=== PATIENT | male | born 1965 | race Caucasian/White ===

== ENCOUNTER 2018-08-22 15:41 | Inpatient (IN) | payer OTHER ==
[~2018-08-22] VITALS: Ht 180.3 cm; Wt 98.4 kg
[2018-08-22 15:42] VITALS: BP 155/89
--- NOTE | 2018-08-22 15:42 | NUR ---
ED Nurse Note: pt brought in by lafd from home c/c s/p syncopal episode, pt states he was feeling like low blood sugar and ate some gummy bears and when he woke up he was surrounded by other people. per 's statement, pt fell and hit his head and called 911, pt loc for about 10 min but was breathing. pt AA&ox4, gcs=15, mild anxious, skin warm and dry, resp even and unlabored, no s/s injury or contusion or open wound noted on head, PERRLA, -n/v/d, ambulates w/steady gait, will cont monitor. PT sinus tach on director of cardiac cath lab, [id number], ERMD at the bedside.
[2018-08-22] MEDS ORDERED: LISINOPRIL20 MG ORAL (15:44)
--- NOTE | 2018-08-22 15:45 | NUR ---
ED Nurse Note: pt states he's nauseated, ERMD notified.
[2018-08-22] MEDS ORDERED: LORAZEPAM0.5 MG ORAL (15:46)
[2018-08-22] MEDS ORDERED: IBUPROFEN600 MG ORAL (15:46)
[2018-08-22] MEDS ORDERED: LANTUS SOL100 UNIT/1 SUBQ (15:46)
--- NOTE | 2018-08-22 15:50 | NUR ---
ED Nurse Note: per ERMD order, gave pt orange juice 4 floz.
--- NOTE | 2018-08-22 15:59 | Emergency Room Report ---
History of Present Illness General Chief Complaint: Syncope Source: Patient, Family Member Present Illness HPI This is a 51-year-old male with a history of insulin-dependent diabetes, who was on Lantus and Humalog, who was brought here by paramedics for a suitable episode. According to patient, he took 15 units of Humalog several hours ago thought that he was having low blood sugar intertriginous for some gummy bears. Unknown if he had some. And on the actual sugar on arrival by paramedics. He denies any trauma. She states she has a complete loss of conscious. She does not recall after that. He does recall having to the hospital. Currently, he does not have any complaints. He states that he had cereal this morning but did not have any lunch. He has not had any change in dosages. Allergies: Coded Allergies: No Known Allergies (Unverified , 08/22/18) Patient History Past Medical History: other - Patient has a history of necrotizing pancreatitis. Past Surgical History: ronnie Pertinent Family History: none Nursing Documentation-PMH Past Medical History: No History, Except For Hx Hypertension: Yes Hx Diabetes: Yes - DM2 Review of Systems All Other Systems: negative except mentioned in HPI Physical Exam Vital Signs Date Time Temp Pulse Resp B/P (MAP) Pulse Ox O2 Delivery O2 Flow Rate FiO2 08/22/18 15:35 97.5 134 18 161/91 99 Room Air General Appearance: no apparent distress, alert, GCS 15, non-toxic Head: normocephalic, atraumatic ENT: hearing grossly normal, normal pharynx, no angioedema, normal voice Neck: full range of motion, supple/symm/no masses Respiratory: chest non-tender, lungs clear, normal breath sounds, speaking full sentences Cardiovascular #1: tachycardia Gastrointestinal: normal bowel sounds, non tender, soft, non-distended, no guarding, no rebound Musculoskeletal: back normal, gait/station normal, normal range of motion, non- tender, calf tenderness Neurologic: alert, oriented x3, responsive, motor strength/tone normal, sensory intact, speech normal Medical Decision Making Diagnostic Impression: Primary Impression: Syncope ER Course Patient was immediately seen and evaluated. Very concerned about hypoglycemic episode. I also did consider acute sepsis as well. He is afebrile. It is noted that the patient did not have a significant decline in blood pressure which leads me to believe that there may be some underlying cause of syncope. Cardiac etiology was considered as well. I also considered acute seizure disorder. The patient will be admitted to telemetry observation unit. No head injury was noted. Therefore, a CT scan is not indicated at this time. He has a normal neurological examination. Laboratory Tests Test 08/22/18 15:53 White Blood Count 8.7 K/UL (4.8-10.8) Red Blood Count 5.52 M/UL (4.70-6.10) Hemoglobin 18.3 G/DL (14.2-18.0) *H Hematocrit 49.7 % (42.0-52.0) Mean Corpuscular Volume 90 FL (80-99) Mean Corpuscular Hemoglobin 33.2 PG (27.0-31.0) H Mean Corpuscular Hemoglobin Concent 36.8 G/DL (32.0-36.0) H Red Cell Distribution Width 10.4 % (11.6-14.8) L Platelet Count 245 K/UL (150-450) Mean Platelet Volume 7.8 FL (6.5-10.1) Neutrophils (%) (Auto) 55.5 % (45.0-75.0) Lymphocytes (%) (Auto) 34.1 % (20.0-45.0) Monocytes (%) (Auto) 6.6 % (1.0-10.0) Eosinophils (%) (Auto) 2.2 % (0.0-3.0) Basophils (%) (Auto) 1.6 % (0.0-2.0) Sodium Level 139 MMOL/L (136-145) Potassium Level 3.7 MMOL/L (3.5-5.1) Chloride Level 98 MMOL/L (98-107) Carbon Dioxide Level 20 MMOL/L (21-32) L Anion Gap 21 mmol/L (5-15) H Blood Urea Nitrogen 14 mg/dL (7-18) Creatinine 1.6 MG/DL (0.55-1.30) H Estimate Glomerular Filtration Rate 45.4 mL/min (>60) Glucose Level 112 MG/DL (74-106) H Calcium Level 10.1 MG/DL (8.5-10.1) Total Bilirubin 0.5 MG/DL (0.2-1.0) Aspartate Amino Transferase (AST) 34 U/L (15-37) Alanine Aminotransferase (ALT) 56 U/L (12-78) Alkaline Phosphatase 112 U/L (46-116) Troponin I 0.000 ng/mL (0.000-0.056) Total Protein 9.0 G/DL (6.4-8.2) H Albumin 5.0 G/DL (3.4-5.0) Globulin 4.0 g/dL Albumin/Globulin Ratio 1.2 (1.0-2.7) EKG Diagnostic Results EKG Time: 15:59 Rate: tachycardiac Rhythm: NSR ST Segments: no acute changes ASA given to the pt in ED: No Chest X-Ray Diagnostic Results Chest X-Ray Diagnostic Results : Chest X-Ray Ordered: Yes # of Views/Limited/Complete: 1 View Indication: Other - syncope EP Interpretation: No - NAD per Rad Last Vital Signs Date Time Temp Pulse Resp B/P (MAP) Pulse Ox O2 Delivery O2 Flow Rate FiO2 08/22/18 15:35 97.5 134 18 161/91 99 Room Air Status: improved Disposition: PLACE IN OBSERVATION Condition: Serious Signed Out To: JACQUELYN Bird Aug 22, 2018 15:59
[2018-08-22 16:11] LABS: BASOPHILS % (AUTO) 1.6 % (0.0-2.0); EOSINOPHILS % (AUTO) 2.2 % (0.0-3.0); HEMATOCRIT 49.7 % (42.0-52.0); LYMPHOCYTES % (AUTO) 34.1 % (20.0-45.0); MEAN CORPUSCULAR VOLUME 90 FL (80-99); MONOCYTES % (AUTO) 6.6 % (1.0-10.0); NEUTROPHILS % (AUTO) 55.5 % (45.0-75.0); PLATELET COUNT 245 K/UL (150-450); RED BLOOD COUNT 5.52 M/UL (4.70-6.10); RED CELL DISTRIBUTION WIDTH 10.4 % (11.6-14.8); WHITE BLOOD COUNT 8.7 K/UL (4.8-10.8)
[2018-08-22 16:12] LABS: HEMOGLOBIN 18.3 G/DL (14.2-18.0)
[2018-08-22 16:16] LABS: ANION GAP 21 mmol/L (5-15); BLOOD UREA NITROGEN 14 mg/dL (7-18); CALCIUM 10.1 MG/DL (8.5-10.1); CARBON DIOXIDE 20 MMOL/L (21-32); CHLORIDE 98 MMOL/L (98-107); CREATININE 1.6 MG/DL (0.55-1.30); POTASSIUM 3.7 MMOL/L (3.5-5.1); SODIUM 139 MMOL/L (136-145)
[2018-08-22] MEDS: Sodium Chloride 500ML 550 ML IV SCH ×2 (16:17→20:39)
[2018-08-22 16:21] LABS: ALANINE AMINOTRANSFERASE 56 U/L (12-78); ALBUMIN/GLOBULIN RATIO 1.2 (1.0-2.7); ALKALINE PHOSPHATASE 112 U/L (46-116); ASPARTATE AMINO TRANSFERASE 34 U/L (15-37); BILIRUBIN,TOTAL 0.5 MG/DL (0.2-1.0)
--- NOTE | 2018-08-22 16:30 | NUR ---
ED Nurse Note: pt reports nausea is better, spouse member at the bedside, will cont monitor.
[2018-08-22 16:42] VITALS: BP 152/89
--- NOTE | 2018-08-22 16:58 | Diagnostic Imaging Report ---
Indication: Chest pain, syncope Technique: XRAY Chest 1v Comparison: None Findings: Heart size and mediastinal contours are within normal limits given technique. There is no focal consolidation, pneumothorax or pleural effusion. Osseous structures demonstrate no acute abnormality. Impression: No radiographic evidence of acute cardiopulmonary disease.
[2018-08-22 17:30] VITALS: BP 153/95
--- NOTE | 2018-08-22 17:53 | NUR ---
ED Nurse Note: pt reports he doesn't have nausea but "doesn't feel right"and feels light headed [id number], ERMD at the bedside and notified.
[2018-08-22 18:30] VITALS: BP 148/96
--- NOTE | 2018-08-22 18:37 | NUR ---
ED Nurse Note: urine collected and sent down to the lab.
[2018-08-22 18:52] LABS: APPEARANCE,URINE CLEAR; BILIRUBIN, URINE NEGATIVE (NEGATIVE); GLUCOSE, URINE (UA) 3+ (NEGATIVE); KETONES,URINE 1+ (NEGATIVE); LEUKOCYTE ESTERASE ,URINE NEGATIVE (NEGATIVE); NITRITE,URINE NEGATIVE (NEGATIVE); PH,URINE 5 (4.5-8.0); PROTEIN,URINE 3+ (NEGATIVE); UROBILINOGEN,URINE NORMAL MG/DL (0.0-1.0)
--- NOTE | 2018-08-22 18:54 | NUR ---
ED Nurse Note: Dr. Galarza at the bedside.
[2018-08-22 18:56] LABS: COLOR,URINE YELLOW
[2018-08-22] MEDS ORDERED: VENTOLIN HFA18 GM INH (19:06)
[2018-08-22] MEDS ORDERED: BENADRYL25 MG ORAL (19:06)
[2018-08-22] MEDS ORDERED: HUMALOG100 UNIT/4 SUBQ (19:06)
[2018-08-22] MEDS ORDERED: LORAZEPAM1 MG ORAL (19:06)
[2018-08-22] MEDS ORDERED: VALACYCLOVIR500 MG ORAL (19:06)
[2018-08-22] MEDS ORDERED: 12 HOUR NASAL S30 ML NASAL (19:06)
[2018-08-22] MEDS ORDERED: IBUPROFEN800 MG ORAL (19:06)
[2018-08-22] MEDS ORDERED: FLUTICASONE PRO16 G1 NASAL (19:06)
[2018-08-22] MEDS ORDERED: TYLENOL EXTRA500 MG ORAL (19:06)
--- NOTE | 2018-08-22 19:20 | NUR ---
ED Nurse Note: attempted giving report, Receiving nurse zuly currently unavailable, will try again.
[2018-08-22 19:30] VITALS: BP 150/92
--- NOTE | 2018-08-22 20:16 | NUR ---
ED Nurse Note: report given to Chiquis SANTIZO from Tele floor, pt going to rm 212-2, all belongings sent with pt, pt transferred to floor to continue care. pt vss. aA&ox4, gcs=15.
--- NOTE | 2018-08-22 21:03 | History & Physical ---
History and Physical History & Physicial 51-year-old male with history of diabetes who presents by special officer for noted hypoglycemia. The patient was running low blood sugars. The patient apparently had loss of consciousness. Currently denies any complaints. No fevers no chills no history of cardiac disease Past medical history notable for diabetes Medication reviewed Harvey allergies reviewed Social history non-smoker nondrinker Past surgical history cholecystectomy Physical examination Well-developed well-nourished male no acute distress vital signs in the emergency room with elevated blood pressure Currently blood pressure 152/89 heart rate 105 respiratory 18 oxygen saturation 96% temperature 97.5 HEENT overall negative neck supple no adenopathy lungs are fairly clear and symmetric Cardiac exam normal S1-S2 regular rate rhythm Abdomen is soft nontender extremities no cyanosis or clubbing or edema Labs Test 08/22/18 15:53 08/22/18 18:35 White Blood Count 8.7 K/UL (4.8-10.8) Red Blood Count 5.52 M/UL (4.70-6.10) Hemoglobin 18.3 G/DL (14.2-18.0) Hematocrit 49.7 % (42.0-52.0) Mean Corpuscular Volume 90 FL (80-99) Mean Corpuscular Hemoglobin 33.2 PG (27.0-31.0) Mean Corpuscular Hemoglobin Concent 36.8 G/DL (32.0-36.0) Red Cell Distribution Width 10.4 % (11.6-14.8) Platelet Count 245 K/UL (150-450) Mean Platelet Volume 7.8 FL (6.5-10.1) Neutrophils (%) (Auto) 55.5 % (45.0-75.0) Lymphocytes (%) (Auto) 34.1 % (20.0-45.0) Monocytes (%) (Auto) 6.6 % (1.0-10.0) Eosinophils (%) (Auto) 2.2 % (0.0-3.0) Basophils (%) (Auto) 1.6 % (0.0-2.0) Sodium Level 139 MMOL/L (136-145) Potassium Level 3.7 MMOL/L (3.5-5.1) Chloride Level 98 MMOL/L (98-107) Carbon Dioxide Level 20 MMOL/L (21-32) Anion Gap 21 mmol/L (5-15) Blood Urea Nitrogen 14 mg/dL (7-18) Creatinine 1.6 MG/DL (0.55-1.30) Estimat Glomerular Filtration Rate 45.4 mL/min (>60) Glucose Level 112 MG/DL (74-106) Calcium Level 10.1 MG/DL (8.5-10.1) Total Bilirubin 0.5 MG/DL (0.2-1.0) Aspartate Amino Transf (AST/SGOT) 34 U/L (15-37) Alanine Aminotransferase (ALT/SGPT) 56 U/L (12-78) Alkaline Phosphatase 112 U/L (46-116) Troponin I 0.000 ng/mL (0.000-0.056) Total Protein 9.0 G/DL (6.4-8.2) Albumin 5.0 G/DL (3.4-5.0) Globulin 4.0 g/dL Albumin/Globulin Ratio 1.2 (1.0-2.7) Urine Color Yellow Urine Appearance Clear Urine pH 5 (4.5-8.0) Urine Specific Gregory 1.025 (1.005-1.035) Urine Protein 3+ (NEGATIVE) Urine Glucose (UA) 3+ (NEGATIVE) Urine Ketones 1+ (NEGATIVE) Urine Blood 3+ (NEGATIVE) Urine Nitrite Negative (NEGATIVE) Urine Bilirubin Negative (NEGATIVE) Urine Urobilinogen Normal MG/DL (0.0-1.0) Urine Leukocyte Esterase Negative (NEGATIVE) Urine RBC 5-10 /HPF (0 - 0) Urine WBC 0-2 /HPF (0 - 0) Urine Squamous Epithelial Cells None /LPF (NONE/OCC) Urine Bacteria Few /HPF (NONE) Urine Fine Granular Casts 0-2 /LPF (NONE) Impression Hypoglycemia Loss of consciousness likely due to the above Possible syncope Minimal azotemia mild hemoconcentration Diabetes Plan IV hydration Hold blood sugars medicine Monitor for hypoglycemia Monitor labs Cardiology clearance and serial troponins Abdifatah Hannah MD Aug 22, 2018 21:03
[2018-08-22 22:15] VITALS: BP 168/116
[2018-08-22] MEDS ORDERED: Milk of Magnesia 30ml Ud ORAL PRN (22:30)
[2018-08-22] MEDS ORDERED: Albuterol 90mcg Inhaler 8gm INH SCH (22:45)
[2018-08-22] MEDS ORDERED: valACYclovir HCL 500mg tab ORAL PRN (22:45)
[2018-08-22] MEDS: LORazepam 1mg tab ORAL PRN (23:07)
[2018-08-23] VITALS: BP 183/116
[2018-08-23] MEDS: Sodium Chloride 500ML 550 ML IV SCH ×2 (01:03→05:27)
[2018-08-23 04:00] VITALS: BP 136/89
--- NOTE | 2018-08-23 05:45 | Consultation ---
DATE OF CONSULTATION: 08/22/2018 CARDIOLOGY CONSULTATION REQUESTING PHYSICIAN: Dr. Abdifatah Hannah. REASON FOR CONSULTATION: Syncope. HISTORY OF PRESENT ILLNESS: This is a 52-year-old male with insulin-requiring diabetes mellitus, takes short and long-acting insulin. He took his usual dose of Humalog, but noted subsequently that he had not eaten much and had a low sugar. He went to have some ____ as a result, but before he could actually consume that he felt like he was blacking out and apparently lost consciousness completely with no recollection until arriving to the hospital by paramedics. The patient misses lunch afternoon. PAST MEDICAL HISTORY: Insulin-requiring diabetes mellitus, status post cholecystectomy, history of necrotizing pancreatitis, and hypertension. ALLERGIES: None. MEDICATIONS: Reviewed. SOCIAL HISTORY: Negative for smoking, alcohol, or substance abuse. FAMILY HISTORY: Noncontributory. MEDICATIONS: Reviewed and reconciled. REVIEW OF SYSTEMS: No history of myocardial infarction. No history of irregular heartbeats. No history of prior stroke. No history of thyroid disorder. No history of asthma. PHYSICAL EXAMINATION: GENERAL: Well developed and well nourished, presently alert and in no distress. VITAL SIGNS: Afebrile, blood pressure 161/91, pulse 134, and respiratory rate 18. HEENT: Normocephalic and atraumatic. Conjunctivae pink. Oropharynx clear. NECK: Supple. Jugular venous pressure normal. No bruits. Carotid upstrokes without delay. LUNGS: Clear. CARDIAC: Regular rhythm. Rapid rate. Normal S1 and S2 with no murmur, rub, or gallop. ABDOMEN: Slightly obese, soft, and nontender. EXTREMITIES: Good pulses. No edema. NEUROLOGIC: Symmetric strength. Cognitive intact. No focal deficits. LABORATORY DATA: White count 8.7 and hemoglobin is 18. Chemistry panel within normal limits other than BUN 14 and creatinine 1.6. Troponin 0. EKG, sinus tachycardia with no acute ST-T abnormalities. IMPRESSION: 1. Syncope due to hypoglycemia. 2. Insulin-requiring diabetes mellitus. 3. Mild hypovolemia, dehydration, and chronic kidney disease with diabetic nephropathy. PLAN: 1. Hydration. 2. Glucose monitoring. 3. Intravenous fluids with dextrose. 4. Decreased long-acting insulin dosing. 5. Continue sliding scale coverage. 6. Hold parameters for antihypertensives. 7. Serial troponin level. Cliff Galarza M.D. DR: MAURILIO JOB#: [id number] CC:
[2018-08-23 07:30] LABS: BASOPHILS % (AUTO) 0.6 % (0.0-2.0); EOSINOPHILS % (AUTO) 0.9 % (0.0-3.0); HEMATOCRIT 44.1 % (42.0-52.0); LYMPHOCYTES % (AUTO) 21.5 % (20.0-45.0); MEAN CORPUSCULAR VOLUME 92 FL (80-99); MONOCYTES % (AUTO) 7.6 % (1.0-10.0); NEUTROPHILS % (AUTO) 69.5 % (45.0-75.0); PLATELET COUNT 210 K/UL (150-450); RED BLOOD COUNT 4.78 M/UL (4.70-6.10); RED CELL DISTRIBUTION WIDTH 10.8 % (11.6-14.8); WHITE BLOOD COUNT 10.3 K/UL (4.8-10.8)
[2018-08-23] MEDS: NovoLOG Insulin Flexpen SUBQ SCH ×4 (07:30→20:28)
[2018-08-23 07:43] LABS: ANION GAP 13 mmol/L (5-15); BLOOD UREA NITROGEN 15 mg/dL (7-18); CALCIUM 8.8 MG/DL (8.5-10.1); CARBON DIOXIDE 23 MMOL/L (21-32); CHLORIDE 103 MMOL/L (98-107); CREATININE 1.2 MG/DL (0.55-1.30); POTASSIUM 4.3 MMOL/L (3.5-5.1); SODIUM 139 MMOL/L (136-145)
--- NOTE | 2018-08-23 07:47 | General Progress Note ---
Assessment/Plan Assessment/Plan Impression Hypoglycemia Loss of consciousness likely due to the above Possible syncope Minimal azotemia mild hemoconcentration Diabetes elevated troponin Plan maintain IV hydration resume blood sugars medicine Monitor sugars Monitor labs Cardiology clearance ? stress test Subjective Allergies: Coded Allergies: HYDROMORPHONE (Verified Allergy, Intermediate, sweating, hallucination, ) Subjective care noted troponin elevated Objective Last 24 Hour Vital Signs Date Time Temp Pulse Resp B/P (MAP) Pulse Ox O2 Delivery O2 Flow Rate FiO2 08/23/18 04:00 83 08/23/18 04:00 97.9 88 19 136/89 (105) 97 08/23/18 00:00 99 08/23/18 00:00 98.3 96 17 183/116 (138) 93 08/22/18 23:32 Room Air 08/22/18 23:08 168/116 08/22/18 22:15 101 168/116 (133) 08/22/18 20:55 98.0 102 16 150/92 100 Room Air 08/22/18 19:30 97.9 102 18 150/92 96 Room Air 08/22/18 18:30 98.0 105 18 148/96 96 Room Air 08/22/18 17:30 97.5 105 18 153/95 96 Room Air 08/22/18 16:42 97.5 105 18 152/89 96 Room Air 08/22/18 15:42 97.5 118 18 155/89 99 Room Air 08/22/18 15:35 97.5 134 18 161/91 99 Room Air Intake and Output 08/22/18 08/23/18 19:00 07:00 Intake Total 400 ml Output Total 800 ml Balance -400 ml Intake Oral 400 ml Output Urine Total 800 ml # Voids 2 Laboratory Tests 08/22/18 15:53: White Blood Count 8.7, Red Blood Count 5.52, Hemoglobin 18.3*H, Hematocrit 49.7 , Mean Corpuscular Volume 90, Mean Corpuscular Hemoglobin 33.2H, Mean Corpuscular Hemoglobin Concent 36.8H, Red Cell Distribution Width 10.4L, Platelet Count 245, Mean Platelet Volume 7.8, Neutrophils (%) (Auto) 55.5, Lymphocytes (%) (Auto) 34.1, Monocytes (%) (Auto) 6.6, Eosinophils (%) (Auto) 2.2, Basophils (%) (Auto) 1.6, Sodium Level 139, Potassium Level 3.7, Chloride Level 98, Carbon Dioxide Level 20L, Anion Gap 21H, Blood Urea Nitrogen 14, Creatinine 1.6H, Estimat Glomerular Filtration Rate 45.4, Glucose Level 112H, Calcium Level 10.1, Total Bilirubin 0.5, Aspartate Amino Transf (AST/SGOT) 34, Alanine Aminotransferase (ALT/SGPT) 56, Alkaline Phosphatase 112, Troponin I 0.000, Total Protein 9.0H, Albumin 5.0, Globulin 4.0, Albumin/Globulin Ratio 1.2 08/22/18 18:35: Urine Color Yellow, Urine Appearance Clear, Urine pH 5, Urine Specific Hodgen 1.025, Urine Protein 3+H, Urine Glucose (UA) 3+H, Urine Ketones 1+H, Urine Blood 3+H, Urine Nitrite Negative, Urine Bilirubin Negative, Urine Urobilinogen Normal, Urine Leukocyte Esterase Negative, Urine RBC 5-10H, Urine WBC 0-2, Urine Squamous Epithelial Cells None, Urine Bacteria Few, Urine Fine Granular Casts 0-2H 08/23/18 05:55: White Blood Count 10.3, Red Blood Count 4.78, Hemoglobin 16.0, Hematocrit 44.1, Mean Corpuscular Volume 92, Mean Corpuscular Hemoglobin 33.4H, Mean Corpuscular Hemoglobin Concent 36.2H, Red Cell Distribution Width 10.8L, Platelet Count 210 , Mean Platelet Volume 7.5, Neutrophils (%) (Auto) 69.5, Lymphocytes (%) (Auto) 21.5, Monocytes (%) (Auto) 7.6, Eosinophils (%) (Auto) 0.9, Basophils (%) (Auto ) 0.6, Sodium Level [Pending], Potassium Level [Pending], Chloride Level [ Pending], Carbon Dioxide Level [Pending], Blood Urea Nitrogen [Pending], Creatinine [Pending], Estimat Glomerular Filtration Rate [Pending], Glucose Level [Pending], Calcium Level [Pending], Troponin I 0.063H Height (Feet): 5 Height (Inches): 11.00 Weight (Pounds): 220 Objective WDWN NAD clear breath sounds bilaterally without rhonchi or wheeze [id number] without MRG NABS nontender no HSM no CCE nonfocal Abdifatah Hannah MD Aug 23, 2018 07:47
--- NOTE | 2018-08-23 07:50 | NUR ---
HAND-OFF: Report given to SUKHDEV Ramesh. Pt stable.
--- NOTE | 2018-08-23 07:55 | NUR ---
NURSE NOTES: Received patient from Chiquis. Patient is sleeping in bed. Patient has unlabored breathing. Patient is SR. Bed is in lowest position, call light within reach, and side rails x2 up. Will follow up plan of care.
[2018-08-23 08:52] VITALS: BP 145/92
--- NOTE | 2018-08-23 08:54 | NUR ---
NURSE NOTES: Made call to Dr. Galarza's office about troponin 0.063 at 8:51am. Awaiting orders.
[2018-08-23] MEDS ORDERED: Flonase Nasal Inhaler 16gm NASAL PRN (09:00)
[2018-08-23] MEDS ORDERED: Flonase Nasal Inhaler 16gm NASAL SCH (09:00)
[2018-08-23] MEDS: Oxymetazoline 0.05% Na Spray 30ml NASAL SCH ×2 (09:17→17:54)
[2018-08-23] MEDS: Lisinopril 20mg tab ORAL SCH (09:18)
[2018-08-23] MEDS: Flonase Nasal Inhaler 16gm NASAL PRN ×2 (09:18→21:37)
--- NOTE | 2018-08-23 09:49 | Diagnostic Imaging Report ---
Indications: Syncopal episode and head trauma Technique: Spiral acquisitions obtained through the brain. Angled axial and coronal 5 x 5 mm slices were reconstructed. Total dose length product 1499.24 mGycm. CTDI vol(s) 70.38 mGy. Dose reduction achieved using automated exposure control Comparison: None. Findings: No acute intracranial hemorrhage or edema. No mass effect nor midline shift. Normal guevara-white differentiation. Normal-sized ventricles and extra axial CSF spaces. Visualized orbits and sinuses are unremarkable. The calvarium is intact. The mastoids are clear. Impression: Negative The CT scanner at [facility] is accredited by the [employer] and the scans are performed using protocols designed to limit radiation exposure to as low as reasonably achievable to attain images of sufficient resolution adequate for diagnostic evaluation.
--- NOTE | 2018-08-23 11:00 | NUR ---
NURSE NOTES: Spoke with Dr. Galarza about troponin 0.063. States to reorder another troponin at noon on 08/23/18 and update with results. Order entered.
[2018-08-23 11:55] VITALS: BP 140/90
--- NOTE | 2018-08-23 12:31 | Cardiology Report ---
APPROVED REPORT EKG Measurement Heart [id number] 154P53 [id number] Normal sinus rhythm Normal ECG
--- NOTE | 2018-08-23 12:41 | Cardiology Report ---
APPROVED REPORT EKG Measurement Heart [id number] RI 150P45 [id number] Sinus tachycardia Otherwise normal ECG
--- NOTE | 2018-08-23 14:00 | NUR ---
NURSE NOTES: 1400: Spoke to Dr. Galarza about second troponin 0.029 drawn at Noon. Received order about orthostatic vital signs. Was entered into computer.
[2018-08-23 16:00] VITALS: BP 132/87
--- NOTE | 2018-08-23 16:11 | NUR ---
*-* NO INS INFO IN THE BAR UNABLE TO SEND REVIEWS OR CLINICALS *-*
[2018-08-23] MEDS ORDERED: Albuterol 90mcg Inhaler 8gm INH PRN (17:15)
[2018-08-23] MEDS ORDERED: Lexiscan 0.4mg/5ml syringe IV PRN (19:00)
--- NOTE | 2018-08-23 19:30 | NUR ---
NURSE NOTES: Report received from Gadiel SANTIZO. Pt is resting in bed in stable condition. Pt is awake, alert, and oriented x4. Pt is on room air and breathing is even and unlabored. No acute distress noted. IV site is asymptomatic, patent, and intact and running IV fluids at rx rate. Bed placed in lowest position with brake engaged and side rails up x2. Call light and side table placed within reach. Order noted from MD Galarza for lexiscan stress test in AM. Pt made aware and agreeable at this time. Will continue with plan of care.
--- NOTE | 2018-08-23 19:40 | NUR ---
HAND-OFF: Report given to SUKHDEV Childs.
[2018-08-23 20:00] VITALS: BP 152/100
--- NOTE | 2018-08-23 20:15 | Progress Note ---
DATE: 08/23/2018 CARDIOLOGY PROGRESS NOTE SUBJECTIVE: The patient has not had any change in mental status or loss of consciousness since admission. Glucose parameters have been slightly elevated, but he is on a dextrose drip. OBJECTIVE: VITAL SIGNS: Stable with no signs of orthostasis. Monitored rhythm sinus with rare atrial ectopy. LUNGS: Clear. CARDIAC: Normal S1, S2. No murmur. ABDOMEN: Soft. EXTREMITIES: No edema. LABORATORY DATA: Troponin #1 0, troponin #2 0.063, troponin #3 0.029. IMPRESSIONS: 1. Syncopal episode clearly due to hypoglycemia. 2. Slight troponin level elevation unlikely to reflect acute myocardial infarction, may be due to transient myocardial ischemia associated with syncopal event. 3. Acute kidney injury, resolved. RECOMMENDATIONS: 1. Adjust insulin dosing. 2. Taper off dextrose drip in view of multiple risk factors and assessment of coronary flow reserve will be obtained. Cliff Galarza M.D. DR: CLARICE JOB#: [id number] CC:
--- NOTE | 2018-08-23 20:20 | NUR ---
NURSE NOTES: Pt refusing stress test at this time. Will notify MD Galarza.
--- NOTE | 2018-08-23 20:37 | NUR ---
CASE MANAGEMENT: REVIEW 52/M BIBA FROM HOME CC: SYNCOPE . ABD PAIN SI: SYNCOPE . HYPOGLYCEMIA T 97.5 HR 134 RR 18 BP 161/91 SAT 96% ROOM AIR H/H 18.3/49.7 TROPONIN I 0.063 IS: ZOFRAN IV X1 NS IVF BOLUS X1 INTERQUAL CRITERIA MET: PATIENT ADMITTED TO TELEMETRY UNIT 08/22/2018 DCP: PATIENT IS FROM HOME
[2018-08-23] MEDS: LORazepam 1mg tab ORAL PRN (21:38)
--- NOTE | 2018-08-23 22:15 | NUR ---
NURSE NOTES: Message left for MD Galarza to notify that pt is refusing stress test at this time. Awaiting call back for further instructions. Pt in stable condition. Will continue to monitor.
--- NOTE | 2018-08-23 23:30 | NUR ---
NURSE NOTES: MD Galarza returned call and notified that pt is refusing stress test at this time. Per MD, he will be in tomorrow AM to speak with patient regarding procedure. No new orders at this time. Continue with plan of care.
[2018-08-24] VITALS: BP 130/70
[2018-08-24 04:00] VITALS: BP 153/94
[2018-08-24] MEDS: NovoLOG Insulin Flexpen SUBQ SCH ×2 (06:09→12:16)
--- NOTE | 2018-08-24 07:20 | NUR ---
NURSE NOTES: Received patient and report from SUKHDEV Childs in bed, denies any pain at this time. No s/s of distress noted, breathing is even and unlabored. Bed is in lowest position, brakes engaged for safety. Patient emphasized not wanting to do the stress test, explained that Dr. Galarza is aware and that he will be seeing patient today. Call light is within reach. Will continue with the plan of care.
[2018-08-24 08:00] VITALS: BP 155/99
[2018-08-24] MEDS ORDERED: valACYclovir HCL 500mg tab ORAL SCH (09:00)
--- NOTE | 2018-08-24 09:04 | General Progress Note ---
Assessment/Plan Assessment/Plan Impression Hypoglycemia Loss of consciousness likely due to the above Possible syncope Minimal azotemia mild hemoconcentration Diabetes elevated troponin head CT negative Plan maintain IV hydration resume blood sugars medicine Monitor sugars Monitor labs Cardiology clearance and stress test hope to dc later today Subjective Allergies: Coded Allergies: HYDROMORPHONE (Verified Allergy, Intermediate, sweating, hallucination, ) Subjective care noted troponin elevated but trending downwards Objective Last 24 Hour Vital Signs Date Time Temp Pulse Resp B/P (MAP) Pulse Ox O2 Delivery O2 Flow Rate FiO2 08/24/18 04:00 97.6 80 18 153/94 (113) 97 08/24/18 04:00 76 08/24/18 00:00 98.1 99 19 130/70 (90) 97 08/24/18 00:00 77 08/23/18 21:41 152/100 08/23/18 21:14 82 16 Room Air 21 08/23/18 21:00 Room Air 08/23/18 20:00 83 08/23/18 20:00 97.9 100 20 152/100 (117) 97 08/23/18 16:00 98.3 88 20 132/87 (102) 97 08/23/18 15:50 82 08/23/18 13:29 97 96 103 08/23/18 11:55 98.1 85 20 140/90 (107) 99 08/23/18 11:49 73 08/23/18 10:12 98.6 08/23/18 09:18 145/92 Intake and Output 08/23/18 08/24/18 19:00 07:00 Intake Total 820 ml 800 ml Output Total 700 ml Balance 820 ml 100 ml Intake Oral 820 ml 800 ml Output Urine Total 700 ml # Voids 2 Laboratory Tests 08/23/18 12:14: Troponin I 0.029 Height (Feet): 5 Height (Inches): 11.00 Weight (Pounds): 217 Objective WDWN NAD clear breath sounds bilaterally without rhonchi or wheeze [id number] without MRG NABS nontender no HSM no CCE nonfocal Abdifatah Hannah MD Aug 24, 2018 09:04
[2018-08-24] MEDS: Lisinopril 20mg tab ORAL SCH (09:13)
[2018-08-24] MEDS: Flonase Nasal Inhaler 16gm NASAL PRN (09:13)
[2018-08-24] MEDS: Oxymetazoline 0.05% Na Spray 30ml NASAL SCH (09:15)
--- NOTE | 2018-08-24 09:43 | General Progress Note ---
Assessment/Plan Assessment/Plan Impression Hypoglycemia Loss of consciousness likely due to the above Possible syncope Minimal azotemia mild hemoconcentration Diabetes elevated troponin head CT negative Plan refuses stress wants to sign out AMA Cardiology clearance and stress test d/w RN dc home Subjective Allergies: Coded Allergies: HYDROMORPHONE (Verified Allergy, Intermediate, sweating, hallucination, ) Subjective care noted troponin elevated but trending downwards refusing stress test Objective Last 24 Hour Vital Signs Date Time Temp Pulse Resp B/P (MAP) Pulse Ox O2 Delivery O2 Flow Rate FiO2 08/24/18 09:13 155/99 08/24/18 04:00 97.6 80 18 153/94 (113) 97 08/24/18 04:00 76 08/24/18 00:00 98.1 99 19 130/70 (90) 97 08/24/18 00:00 77 08/23/18 21:41 152/100 08/23/18 21:14 82 16 Room Air 21 08/23/18 21:00 Room Air 08/23/18 20:00 83 08/23/18 20:00 97.9 100 20 152/100 (117) 97 08/23/18 16:00 98.3 88 20 132/87 (102) 97 08/23/18 15:50 82 08/23/18 13:29 97 96 103 08/23/18 11:55 98.1 85 20 140/90 (107) 99 08/23/18 11:49 73 08/23/18 10:12 98.6 Intake and Output 08/23/18 08/24/18 19:00 07:00 Intake Total 820 ml 800 ml Output Total 700 ml Balance 820 ml 100 ml Intake Oral 820 ml 800 ml Output Urine Total 700 ml # Voids 2 Laboratory Tests 08/23/18 12:14: Troponin I 0.029 Height (Feet): 5 Height (Inches): 11.00 Weight (Pounds): 217 Objective WDWN NAD clear breath sounds bilaterally without rhonchi or wheeze [id number] without MRG NABS nontender no HSM no CCE nonfocal Abdifatah Hannah MD Aug 24, 2018 09:42
[2018-08-24 12:00] VITALS: BP 146/101
--- NOTE | 2018-08-24 15:07 | NUR ---
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 97.7 HR 82 RR 20 B/P 155/99 RA 98% IS: IVF NS 100ML/HR VALTREX PO PROTONIX PO TELE STATUS
--- NOTE | 2018-08-24 15:50 | NUR ---
NURSE NOTES: Patient went AMA, stated that "I can't afford any more time off work", explained the risk and benefit to the patient several times . Patient still insist on leaving against medical advice. Dr. Hannah spoke to the patient, but to know avail. Dr Hannah is aware of the patient leaving. vehicle monitor technician removed, IV and ID band removed prior to leave, patient tolerated well, no s/s of bleeding, redness or infiltration. Belongings accounted for and with patient. Belonging paper signed by patient and nurse. Patient is in stable condition.
--- NOTE | 2018-08-24 16:31 | NUR ---
*-* INSURANCE *-* ALL CLINICALS HAVE BEEN FAXED TO: [facility] [id number] [address] F:[phone] REF#[id number]
--- NOTE | 2018-08-24 22:00 | Progress Note ---
DATE: 08/24/2018 CARDIOLOGY PROGRESS NOTE SUBJECTIVE: The patient has had slightly elevated glucose levels. No hypoglycemic episodes. His usual dose of insulin was not given. He had a lower dose given. The patient has no chest pain, dizziness, or shortness of breath. 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 I have made aware to him that he has minimally elevated troponin level, which does not represent any myocardial infarction, but may suggest a coronary artery disease especially in view of his multiple risk factors. OBJECTIVE: VITAL SIGNS: Blood pressure 155/99, pulse 82, and respirations 20. LUNGS: Clear. CARDIAC: Regular. Normal S1, S2 with a fourth heart sound. ABDOMEN: Soft. EXTREMITIES: No edema. IMPRESSION: 1. Hypoglycemic syncope. 2. Insulin-requiring diabetes mellitus. 3. Acute myocardial ischemia precipitated by episode of syncope. 4. Hypertensive heart disease with accelerated blood pressure. PLAN: The patient refuses to proceed with stress testing at this time i.e., Lexiscan. He is aware of risks and is agreeable to follow up with his primary care physician at a later date to complete this workup. The patient is advised to restrict salt and his antihypertensive regimen was advanced to tighten his blood pressure control. He is advised to continue anti-platelet and anti-lipid drugs and to have a regular diet schedule with his insulin dosing. Cliff Galarza M.D. DR: SEN JOB#: [id number] CC:
--- NOTE | 2018-08-25 08:16 | Discharge Summary ---
Discharge Summary Discharge Summary _ DATE OF ADMISSION: 08/22/2018 DATE OF DISCHARGE: 08/24/2018 CONSULTANTS: Dr. Cliff Galarza BRIEF HOSPITAL COURSE: Patient is a 51-year-old male, with history of diabetes, who is on Lantus and Humalog, presented to ED via paramedics due to hypoglycemia. Patient apparently had loss of consciousness. Patient stated he was feeling like he had low blood sugar and ate some gummy bears. He had no recollection of what happened after. Patient passed out, when he awoke he was surrounded by other people. Per 's statement, patient fell and hit his head. On evaluation at the ED, blood pressure was elevated to 161/91, heart rate 134. Blood work was stable. Glucose 112. Troponin was negative. Urinalysis with 3+ protein, 3+ glucose, 1+ ketone, negative nitrite, negative leukocyte esterase , 5-10 RBC, 0-2 WBC. He had an EKG that showed sinus tachycardia with no acute changes. Chest x-ray showed no radiographic evidence of acute cardiopulmonary disease. He was admitted for evaluation of syncope and loss of consciousness, hypoglycemia, diabetes, mild azotemia and mild hemoconcentration. He was given IV hydration. Hypoglycemics were placed on hold. Blood glucose was monitored. Cardiac evaluation was done. Cardiac troponins were monitored. There was elevation in troponin level. Subsequent troponin levels were elevated to 0.063 and 0.029. Blood glucose was elevated, he was tapered off dextrose drip. He was given insulin sliding scale. Head CT was negative. He did not have any neurological findings. He was planned to undergo a stress test. However, patient was not willing to complete cardiac workup. Patient was made aware that he had minimally elevated troponin level, which may not represent any myocardial infarction, but may be suggestive of a coronary artery disease especially in view of his multiple risk factors. He refused to proceed. He was advised to restrict salt and antihypertensive regimen was advanced to tighten his blood pressure control. He was advised to continue antiplatelet and antilipid drugs and to have regular diet schedule of his insulin dosing. Patient left AMA. FINAL DIAGNOSES: Syncope due to hypoglycemia Insulin requiring diabetes mellitus Acute myocardial ischemia precipitated by episode of syncope Hypertensive heart disease with accelerated blood pressure Minimal azotemia with mild hemoconcentration Acute kidney injury, resolved Chronic kidney disease with diabetic nephropathy DISPOSITION: Patient left against medical advise. I have been assigned to complete a discharge summary on this account, I was not involved with the patient's management. Areli Fowler NP Aug 25, 2018 08:16
== END 2018-08-24 15:47 | disposition left against medical advice (07) | DRG 639 ==
LOC: EDBD 15:41 → EMR 16:57 → EDBEDREQ 17:58 → 2E 18:21 → EDBEDREQ 18:53
DX: E11.649 Type 2 diabetes mellitus with hypoglycemia without coma (principal); Z79.4 Long term (current) use of insulin; I51.3 Intracardiac thrombosis, not elsewhere classified; I13.10 Hypertensive heart and chronic kidney disease without heart failure, with stage 1 through stage 4 chronic kidney disease, or unspecified chronic kidney disease; E11.22 Type 2 diabetes mellitus with diabetic chronic kidney disease; N18.9 Chronic kidney disease, unspecified; N17.9 Acute kidney failure, unspecified; Z90.49 Acquired absence of other specified parts of digestive tract; E86.1 Hypovolemia; E86.0 Dehydration; Z88.6 Allergy status to analgesic agent
CPT/HCPCS: 36415; 70450; 71045; 80048; 80053; 81003; 82962; 84484; 85025; 93005; 94664; 96374; 99285; J1815; J2405